=== PATIENT | female | born 1995 | race African-American/Black ===

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

== ENCOUNTER 2017-08-31 18:38 | Emergency (ER) | payer BC ==
[~2017-08-31] VITALS: Ht 160 cm; Wt 51.4 kg
[2017-08-31 18:40] VITALS: TEMP 37; Ht 160 cm; Wt 51.4 kg
[2017-08-31 19:26] LABS: BASO % 0.8 %; BASO ABS # 0.04 K/uL (0-0.2); EOS % 1.8 %; EOS ABS # 0.09 K/uL (0-0.5); HEMATOCRIT 36.4 % (37-47); IG# 0.01 K/uL (0.00-0.02); LYMPH % 37.8 %; LYMPH ABS # 1.91 K/uL (1.2-3.4); MEAN CELL VOLUME 84.3 fL (80-100); MEAN CORPUSCULAR HEMOGLOBIN 27.8 pg (25-34); MEAN PLATELET VOLUME 10.6 fL (7.4-10.4); MONO % 9.1 %; MONO ABS # 0.46 K/uL (0.11-0.59); NEUT % 50.3 %; NEUT ABS # 2.54 K/uL (1.4-6.5); PLATELET COUNT 324 K/uL (130-400); RED CELL DISTRIBUTION WIDTH CV 15.2 % (11.5-14.5); WHITE BLOOD COUNT 5.05 K/uL (4.8-10.8)
[2017-08-31 19:40] LABS: INR 1.1 (0.9-1.1); PTT PATIENT 25.9 SECONDS (21.0-31.0)
[2017-08-31 19:49] LABS: ALBUMIN 3.8 gm/dl (3.4-5.0); ALT/SGPT 19 U/L (12-78); BLOOD UREA NITROGEN 12 mg/dl (7-18); CALCIUM 8.9 mg/dl (8.5-10.1); CARBON DIOXIDE 27 mmol/L (21-32); CREATININE 0.82 mg/dl (0.60-1.20); GLUCOSE 95 mg/dl (70-99); LIPASE 132 U/L (73-393); POTASSIUM 3.7 mmol/L (3.5-5.1); SODIUM 139 mmol/L (136-145)
[2017-08-31 19:52] LABS: ALKALINE PHOSPHATASE 44 U/L (45-117); AST/SGOT 18 U/L (15-37); TOTAL PROTEIN 7.5 gm/dl (6.4-8.2)
--- NOTE | 2017-08-31 20:22 | DIAGNOSTIC IMAGING REPORT ---
CHEST 2 VIEWS ROUTINE CLINICAL HISTORY: 21 years-old Female presenting with cp eval for pna. TECHNIQUE: PA and lateral views of the chest were obtained. COMPARISON: None. FINDINGS: Cardiomediastinal silhouette normal. Lungs and pleural spaces clear. Osseous structures normal. Upper abdomen normal. IMPRESSION: 1. No acute cardiopulmonary disease. Electronically signed by: Sanju Finch M.D. 08/31/2017 8:21 PM Dictated Date/Time: 08/31/2017 8:20 PM
[2017-08-31 20:46] VITALS: BP 124/72; PULSE 72; O2SAT 98
--- NOTE | 2017-08-31 21:21 | EMERGENCY ROOM VISIT NOTE ---
History Report prepared by Christin: Urszula Ansari Under the Supervision of: Dr. Fabrice Ruiz M.D. First contact with patient: 18:47 Chief Complaint: CHEST PAIN Stated Complaint: STOMACHACHE,CHEST PAINS Nursing Triage Summary: "stomach pain x2 weeks and chest pain x1 year. I went to urgent care and they sent me here." Denies dyspnea. also c/o black stool and vomiting. denies urinary symptoms. abdominal pain 610 chest pain 8/10 Seen by pcp in February for CP, said it was related to poor posture. History of Present Illness The patient is a 21 year old female who presents to the Emergency Room with complaints of intermittent abdominal pain starting 2 weeks ago. The patient went to urgent care today for her abdominal pain. She was sent to the ED because she had been having chest pain. She has been having intermittent chest pain for over 1 year. The pain occurs randomly. The pain is on the left side of her chest and feels tight and sharp for around 8 seconds. She last had this pain yesterday. She saw a physician for this pain 6 months ago and was told that it was due to bad posture. She has had intermittent abdominal pain for the past 2 weeks. The pain is achy and travels around her abdomen. It occurs daily. It is worse in the morning and when she has not eaten. She has not been taking anything for her pain. She vomited 5 days ago. She is having a bowel movement daily which is abnormal for her. She does state her bowel movements are normal but had a black stool 1 week ago. She denies any fever, urinary symptoms, leg pain, leg swelling, abnormal vaginal discharge, or vaginal bleeding. She denies any change in diet. She denies any alcohol use. She denies any previous abdominal surgeries or . She does not have any medical problems. She is not on control. Source of History: patient Onset: 2 weeks ago Position: abdomen Quality: ache Timing: intermittent Modifying Factors (Worsening): other (not eating) Associated Symptoms: + chest pain, + vomiting, No fevers, No urinary symptoms Note: Pt reports black stool. Pt denies leg swelling/pain, vaginal discharge/bleeding. Review of Systems See HPI for pertinent positives & negatives. A total of 10 systems reviewed and were otherwise negative. Past Medical & Surgical Medical Problems: (1) No significant past medical history Family History No pertinent family history stated. Social History Smoking Status: Never Smoker Occupation Status: [employer] student Current/Historical Medications No Active Prescriptions or Reported Meds Allergies Coded Allergies: POLLEN (Verified Allergy, Unknown, NASAL CONGESTION, 08/31/17) Physical Exam Vital Signs Date Time Temp Pulse Resp B/P (MAP) Pulse Ox O2 Delivery O2 Flow Rate FiO2 08/31/17 20:46 72 20 124/72 98 08/31/17 19:28 66 20 107/72 99 Room Air 08/31/17 18:40 37.0 77 18 112/73 98 Physical Exam Constitutional: Vital signs reviewed. Eyes: Pupils are equal round reactive to light. Conjunctiva are noninjected. ENT: Pharynx is clear without erythema or exudate. Mucous membranes are moist. Neck supple without meningeal signs. Respiratory: Clear to auscultation bilaterally. Breath sounds are equal bilaterally. Cardiovascular: Regular rate and rhythm. No rubs or gallops. GI: Soft, nondistended. Epigastric tenderness. No guarding. No RUQ tenderness. Bowel sounds are present. Musculoskeletal: No peripheral edema. No lower extremity tenderness. Integumentary: No cyanosis. Neurological: The patient is awake and alert. No focal deficits. Psychiatric: Normal affect. Medical Decision & Procedures ER Provider Diagnostic Interpretation: X-ray results as stated below per interpretation by me and the radiologist: CHEST 2 VIEWS ROUTINE CLINICAL HISTORY: 21 years-old Female presenting with cp eval for pna. TECHNIQUE: PA and lateral views of the chest were obtained. COMPARISON: None. FINDINGS: Cardiomediastinal silhouette normal. Lungs and pleural spaces clear. Osseous structures normal. Upper abdomen normal. IMPRESSION: 1. No acute cardiopulmonary disease. Electronically signed by: Sanju Finch M.D. 08/31/2017 8:21 PM Dictated Date/Time: 08/31/2017 8:20 PM Laboratory Results 08/31/17 19:10 Red Blood Count 4.32, Mean Corpuscular Volume 84.3, Mean Corpuscular Hemoglobin 27.8, Mean Corpuscular Hemoglobin Concent 33.0, Mean Platelet Volume 10.6, Neutrophils (%) (Auto) 50.3, Lymphocytes (%) (Auto) 37.8, Monocytes (%) (Auto) 9.1, Eosinophils (%) (Auto) 1.8, Basophils (%) (Auto) 0.8, Neutrophils # (Auto) 2.54, Lymphocytes # (Auto) 1.91, Monocytes # (Auto) 0.46, Eosinophils # (Auto) 0.09, Basophils # (Auto) 0.04 08/31/17 19:10 Test 08/31/17 19:10 08/31/17 19:19 White Blood Count 5.05 K/uL (4.8-10.8) Red Blood Count 4.32 M/uL (4.2-5.4) Hemoglobin 12.0 g/dL (12.0-16.0) Hematocrit 36.4 % (37-47) Mean Corpuscular Volume 84.3 fL (80-100) Mean Corpuscular Hemoglobin 27.8 pg (25-34) Mean Corpuscular Hemoglobin Concent 33.0 g/dl (32-36) Platelet Count 324 K/uL (130-400) Mean Platelet Volume 10.6 fL (7.4-10.4) Neutrophils (%) (Auto) 50.3 % Lymphocytes (%) (Auto) 37.8 % Monocytes (%) (Auto) 9.1 % Eosinophils (%) (Auto) 1.8 % Basophils (%) (Auto) 0.8 % Neutrophils # (Auto) 2.54 K/uL (1.4-6.5) Lymphocytes # (Auto) 1.91 K/uL (1.2-3.4) Monocytes # (Auto) 0.46 K/uL (0.11-0.59) Eosinophils # (Auto) 0.09 K/uL (0-0.5) Basophils # (Auto) 0.04 K/uL (0-0.2) RDW Standard Deviation 47.0 fL (36.4-46.3) RDW Coefficient of Variation 15.2 % (11.5-14.5) Immature Granulocyte % (Auto) 0.2 % Immature Granulocyte # (Auto) 0.01 K/uL (0.00-0.02) Prothrombin Time 11.8 SECONDS (9.0-12.0) Prothromb Time International Ratio 1.1 (0.9-1.1) Activated Partial Thromboplast Time 25.9 SECONDS (21.0-31.0) Partial Thromboplastin Ratio 1.0 Anion Gap 8.0 mmol/L (3-11) Est Creatinine Clear Calc Drug Dose 89.5 ml/min Estimated GFR () 120.2 Estimated GFR (Non- 103.7 BUN/Creatinine Ratio 14.0 (10-20) Calcium Level 8.9 mg/dl (8.5-10.1) Total Bilirubin 0.3 mg/dl (0.2-1) Direct Bilirubin < 0.1 mg/dl (0-0.2) Aspartate Amino Transf (AST/SGOT) 18 U/L (15-37) Alanine Aminotransferase (ALT/SGPT) 19 U/L (12-78) Alkaline Phosphatase 44 U/L (45-117) Total Protein 7.5 gm/dl (6.4-8.2) Albumin 3.8 gm/dl (3.4-5.0) Lipase 132 U/L (73-393) Bedside D-Dimer 65 ng/mlFEU (0-450) Urine Color YELLOW Urine Appearance CLEAR (CLEAR) Urine pH 7.0 (4.5-7.5) Urine Specific [place] 1.024 (1.000-1.030) Urine Protein NEG (NEG) Urine Glucose (UA) NEG (NEG) Urine Ketones NEG (NEG) Urine Occult Blood NEG (NEG) Urine Nitrite NEG (NEG) Urine Bilirubin NEG (NEG) Urine Urobilinogen NEG (NEG) Urine Leukocyte Esterase NEG (NEG) Urine Test NEG (NEG) Bedside Troponin I < 0.030 ng/ml (0-0.045) Laboratory results as reviewed by me. ECG Indication: chest pain Rate (beats per minute): 69 Rhythm: normal sinus Findings: no acute ischemic change, no ectopy Change: Patient's electrocardiogram per my interpretation. ED Course 1848: The patient was evaluated in room A9B. A complete history and physical exam was performed. 1907: ABDIRAHMAN Mackey performed the rectal exam, guaiac negative brown stool , no hemorrhoids. 1918: Bedside sonogram shows no right sided hydronephrosis or gallstones. 2030: I reevaluated the patient. She is not having any symptoms currently. I discussed tonight's findings with her. She verbalized agreement of the treatment plan. She was discharged home. Medical Decision This is a 21-year-old female who presents with upper abdominal pain and chest pain. Differential diagnosis includes peptic ulcer disease, gastritis, pancreatitis, irritable bowel syndrome, inflammatory bowel disease, costochondritis, pulmonary embolism. I did perform a limited focused review of portions of the patient's old chart on the electronic medical record. The patient has had no recent pertinent visits to this hospital. I did evaluate the patient as noted above. The patient is presenting with upper abdominal pain which she has had for about 2 weeks. She states is worse when she doesn't eat. She has it intermittently and is not currently having any pain. She is slightly tender over the epigastric region. I did perform a limited bedside sonogram of the right upper quadrant which showed no hydronephrosis of the right kidney or any gallstones. She also complains of chest pain which she has had intermittently for over a year. She states it lasts only 8 seconds and then goes away. She is currently not having any chest pain. IV access was established. The patient was placed on a continuous cafeteria monitor. I did order and personally review the patient's 12-lead EKG and chest x-ray as described above. Her EKG is unremarkable and shows no acute ischemic changes. Her chest x-ray does not show signs of pneumothorax or pneumonia. I did order and review the patient's blood work as noted in the electronic medical record. Troponin and d-dimer are negative. LFTs and lipase are negative. She is not anemic. She did state that she had an episode of black stools and so a female PA performed a rectal examination and stated that her stool was brown and guaiac negative. I did discuss the test results with the patient. At this time the cause of her symptoms is not exactly clear but I do suspect possible peptic ulcer disease for her abdominal pain. I did recommend H2 blockers [id number] and close follow up with [facility]. I also advised her to follow regarding her intermittent chest pain. She was discharged in good condition and given return instructions as outlined below. Medication Reconcilliation Current Medication List: was personally reviewed by me Blood Pressure Screening Patient's blood pressure: Normal blood pressure Blood pressure disposition: Did not require urgent referral Impression Primary Impression: Epigastric abdominal pain Additional Impression: Left sided chest pain Scribe Attestation The scribe's documentation has been prepared under my direct and personally reviewed by me in its entirety. I confirm that the note above accurately reflects all work, treatment, procedures, and medical decision making performed by me. Departure Information Dispostion Home / Self-Care Prescriptions No Active Prescriptions or Reported Meds Referrals No Doctor, Assigned (PCP) Forms HOME CARE DOCUMENTATION FORM, IMPORTANT VISIT INFORMATION Patient Instructions ED Abdominal Pain Unkn Cause, ED Chest Pain Atypical Unkn Cause, My [facility] Additional Instructions You have been examined and treated today on an emergency basis only. This is not a substitute for, or an effort to provide, complete comprehensive medical care. It is impossible to recognize and treat all injuries or illnesses in a single emergency department visit. It is therefore important that you follow up closely with [facility]. Call as soon as possible for an appointment. Return for worsening symptoms or if you develop fever, vomiting, black or bloody stools or any other concerning symptoms. Take [id number] Zantac or Pepcid. Problem Qualifiers
== END 2017-08-31 20:47 | disposition home or self-care (01) ==
LOC: C.EDB 18:40 → C.EDA 20:47
DX: R10.13 Epigastric pain (principal); R07.9 Chest pain, unspecified